=== PATIENT | male | born 1970 | race Caucasian/White ===

== ENCOUNTER 2017-08-30 02:13 | Emergency (ER) | payer MEDICAID ==
[2017-08-30] MEDS: SOD CHLORIDE 0.9% 1,000 ML IV (03:50)
[2017-08-30] MEDS: DIPHENHYDRAMINE 50 MG INJ IV (03:50)
[2017-08-30] MEDS: FAMOTIDINE 20 MG INJ IV (03:50)
[2017-08-30] MEDS: DEXAMETHASONE 10 MG/ML 1 ML INJ IV (03:50)
== END 2017-08-30 05:07 | disposition home or self-care (01) ==
LOC: FTE 02:13
DX: R60.0 Localized edema (principal)
CPT/HCPCS: 96374; 96375; 99284-25